=== PATIENT | male | born 1955 | race Caucasian/White ===

== ENCOUNTER 2022-11-21 07:51 | Outpatient (CLI) | payer MEDICARE, SELFPAY ==
[2022-11-21 10:21] LABS: Chloride* 107 mmol/L (96-114); Potassium* 4.6 mmol/L (3.6-5.1); Sodium* 141 mmol/L (135-149)
[2022-11-21 10:24] LABS: Alanine Aminotransferase* 26 U/L (4-50); Alkaline Phosphatase* 82 U/L (40-150); Aspartate Amino Transferase* 25 U/L (12-35); Bilirubin Total* 0.5 mg/dL (0.1-1.5); Blood Urea Nitrogen* 19 mg/dL (7-30); Carbon Dioxide* 28 mmol/L (20-32); Creatinine* 1.2 mg/dL (0.5-1.5); Estimated Glomerular Filt Rate 66 ml/min; Glucose* 108 mg/dL (60-115); Total Protein* 6.4 g/dL (6.0-8.3)
[2022-11-21 10:25] LABS: Calcium* 8.6 mg/dL (8.4-10.6)
[2022-11-21 10:30] LABS: Creatinine Urine 172.9 mg/dL
[2022-11-21 10:34] LABS: Microalbumin Creatinine Ratio 10 mg/g (0-30); Microalbumin Urine 2 mg/dL
== END 2022-11-21 07:52 | disposition home or self-care (01) ==
PROVIDERS: PCP Family Medicine; Visit Provider Family Medicine
DX: N18.9 Chronic kidney disease, unspecified (principal); R73.03 Prediabetes
CPT/HCPCS: 80053; 82043; 82570

== ENCOUNTER 2023-03-22 07:40 | Outpatient (CLI) | payer MEDICARE, SELFPAY | END 2023-03-22 07:41 | disposition home or self-care (01) | LOC: NFLDREF 03-23 10:41 | PROVIDERS: PCP Family Medicine; Referring Provider Family Medicine; Visit Provider Family Medicine | DX: E78.5 Hyperlipidemia, unspecified (principal); R73.03 Prediabetes; Z12.5 Encounter for screening for malignant neoplasm of prostate; I10 Essential (primary) hypertension; M10.9 Gout, unspecified | CPT/HCPCS: 80053; 80061; 84153; 84550 ==

== ENCOUNTER 2024-03-26 08:00 | Outpatient (CLI) | payer MEDICARE, SELFPAY | END 2024-03-26 08:01 | disposition home or self-care (01) | LOC: NFLDREF 03-27 11:59 | PROVIDERS: PCP Family Medicine; Referring Provider Family Medicine; Visit Provider Family Medicine | DX: E78.5 Hyperlipidemia, unspecified (principal); I10 Essential (primary) hypertension; R73.03 Prediabetes; N40.0 Benign prostatic hyperplasia without lower urinary tract symptoms; Z12.5 Encounter for screening for malignant neoplasm of prostate | CPT/HCPCS: 80053; 80061; 82043; 82570; 84550; G0103 ==

== ENCOUNTER 2024-07-08 07:32 | Outpatient (CLI) | payer MEDICARE, SELFPAY ==
--- NOTE | 2024-07-08 08:00 | CRLHL7_ITS ---
For Patients: As a result of the 21st Century Cures Act, medical imaging exams and procedure reports are released immediately into your electronic medical record. You may view this report before your referring provider. If you have questions, please contact your health care provider. Indication: CHRONIC COUGH X 15 YEARS. EXPOSURE TO ASBESTOS Technique: Noncontrast CT chest, including supine inspiration and expiration high-resolution images. Please note that all CT scans at this facility use dose modulation, iterative reconstruction, and/or weight-based dosing when appropriate to reduce radiation dose to as low as reasonably achievable. Comparison: CT chest 01/03/2013, CT abdomen 02/02/2016 Findings: In the upper abdomen, there is a solid lesion arising from the left hepatic lobe which is partially exophytic and measures 5.7 cm, previously, there was a solid lesion measuring 2.6 cm. The adrenal glands are normal. The spleen is nonenlarged. No hiatal hernia. No pleural or pericardial effusion. No adenopathy. A left thyroid lobe nodule is present measuring 3.4 cm. Atherosclerotic changes. Degenerative changes are present at both shoulders. Unchanged 3 millimeter nodule along the right minor fissure. Minimal linear subsegmental scarring is present in the inferior lingula. No honeycombing or interlobular septal thickening. No airspace disease. Discogenic spurring throughout the mid thoracic spine. Patchy areas of air trapping are present bilaterally. Impression: Patchy areas of air trapping noted bilaterally consistent with small airway disease. No pulmonary fibrosis or suspicious pulmonary nodule. No evidence of asbestos related pleural disease or asbestosis. Enlargement of solid lesion arising from the left hepatic lobe measuring 5.7 cm. Ultrasound was performed 02/07/2016 which revealed an indeterminate lesion and MRI was recommended. It is unclear if this was ever performed. Dedicated liver CT or liver MRI recommended for further evaluation. 3.4 cm left thyroid lobe nodule. Ultrasound thyroid recommended. Please note that all CT scans at this facility use dose modulation, iterative reconstruction, and/or weight-based dosing when appropriate to reduce radiation dose to as low as reasonably achievable. Dictated by Emmanuel Cain MD @ 07/08/2024 10:22:44 AM (Electronically Signed)
[2024-07-08 08:09] LABS: Creatinine* 1.4 mg/dL (0.5-1.5); Estimated Glomerular Filt Rate 55 ml/min
--- NOTE | 2024-07-08 08:30 | CRLHL7_ITS ---
For Patients: As a result of the Century Cures Act, medical imaging exams and procedure reports are released immediately into your electronic medical record. You may view this report before your referring provider. If you have questions, please contact your health care provider. INDICATION: NECK FULLNESS NECK LUMPS TECHNIQUE: CT of the neck with 138 ml iodinated contrast agent. Coronal and sagittal reconstructions are included. COMPARISON: None FINDINGS: No lymphadenopathy. The oral cavity, nasopharyngeal, oropharyngeal and hypopharyngeal mucosal spaces are normal. No periapical dental disease. The supraglottic, glottic and infraglottic larynx are normal. The airway including the trachea is normal and is patent. The parotid glands, submandibular and sublingual glands are normal in appearance. 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 Heterogeneous enhancing masses noted in the thyroid lobes, largest in the left side measuring up to 3.8 cm on the right measuring up to 1.5 cm. Retropharyngeal course of the right internal carotid artery. Scattered cervical spondylosis. No suspicious lytic or blastic osseous lesions. Visualized paranasal sinuses and mastoid air cells are clear. Rightward deviation of the nasal septum. Visualized orbital and intracranial contents are normal. Supraclavicular regions, mediastinum and soft tissues of the imaged chest wall are normal. Visualized portions of the upper lungs are clear. IMPRESSION: 1. Heterogeneous enhancing masses noted in the thyroid lobes, largest in the left side measuring up to 3.8 cm on the right measuring up to 1.5 cm. Findings may represent multinodular goiter but further evaluation with ultrasound is recommended for further characterization. 2. No evidence of acute inflammation. 3. No cervical lymphadenopathy. 4. 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 Please note that all CT scans at this facility use dose modulation, iterative reconstruction, and/or weight-based dosing when appropriate to reduce radiation dose to as low as reasonably achievable. Dictated by Emmanuel Almeida MD @ 07/08/2024 1:14:18 PM (Electronically Signed)
== END 2024-07-08 07:33 | disposition home or self-care (01) ==
LOC: CT 07:33
PROVIDERS: PCP Family Medicine; Visit Provider Family Medicine
DX: R22.1 Localized swelling, mass and lump, neck (principal); R05.3 Chronic cough; E04.1 Nontoxic single thyroid nodule; Z77.090 Contact with and (suspected) exposure to asbestos
CPT/HCPCS: 36415; 70491; 71250; 82565; Q9967

== ENCOUNTER 2024-07-21 06:55 | Outpatient (CLI) | payer MEDICARE, SELFPAY ==
--- NOTE | 2024-07-21 07:15 | CRLHL7_ITS ---
For Patients: As a result of the Century Cures Act, medical imaging exams and procedure reports are released immediately into your electronic medical record. You may view this report before your referring provider. If you have questions, please contact your health care provider. INDICATION: Hepatomegaly COMPARISON: CT chest 07/08/2024, CT abdomen 02/02/2016 TECHNIQUE: Real time coburn scale imaging and color Doppler analysis was performed of the right upper quadrant. FINDINGS: The liver measures 15.9 cm. Liver echotexture is diffusely increased. There is a heterogeneous solid mass there is a normal appearance of the hepatic IVC and proximal abdominal aorta. There is no evidence of ascites. Echogenic and shadowing stones are present within the gallbladder lumen. The gallbladder wall measures 3.6 mm in thickness. The common bile duct is of normal size and measures 4.3 mm in diameter at the level of the alden hepatis. The pancreas appears normal. There is no evidence of a stone or hydronephrosis within the right kidney. Simple cyst in the right kidney measures 17 x 14 x 16 millimeters. The right kidney measures 10.7 cm in length. IMPRESSION: Solid heterogeneous mass within the left hepatic lobe measuring 4.9 x 5.5 x 4.7 cm, indeterminate, possible atypical hemangioma but can not exclude alternative lesion. MRI liver with and without contrast recommended for further evaluation. Cholelithiasis. Incidental right renal cyst. Dictated by Emmanuel Cain MD @ 07/21/2024 8:06:34 AM (Electronically Signed)
--- NOTE | 2024-07-21 08:15 | CRLHL7_ITS ---
For Patients: As a result of the Century Cures Act, medical imaging exams and procedure reports are released immediately into your electronic medical record. You may view this report before your referring provider. If you have questions, please contact your health care provider. INDICATION: Thyroid nodule. TECHNIQUE: Ultrasound thyroid with coburn-scale and color Doppler analysis. COMPARISON: None available. FINDINGS: Right lobe: 5.5 x 2.3 x 2.8 cm. Left lobe: 5.6 x 3.2 x 3.4 cm. Nodules: Nodule 1: Mid right thyroid lobe. 1.8 x 1.3 x 1.8 centimeters. Almost completely solid. Mildly hypoechoic. Wider than tall. Smooth margins. No echogenic foci. TI-RADS 4. Nodule 2: Mid right thyroid lobe, posterior. 1.6 x 1.0 x 1.4 centimeters. Almost completely solid. Mildly hypoechoic. Wider than tall. Smooth margins. No echogenic foci. TI-RADS 4. Nodule 3: Mid left thyroid lobe. 3.9 x 2.8 x 3.1 centimeters. Almost completely solid. Isoechoic. Wider than tall. Smooth margins. No echogenic foci. TI-RADS 3. Echotexture of the thyroid parenchyma is mildly heterogeneous. Color Doppler analysis demonstrates normal vascularity. The isthmus is normal. No evidence of lymphadenopathy or parathyroid mass. IMPRESSION: Multinodular thyroid. Three nodules described above all attain the TI-RADS definite threshold. - ACR TI-RADS [email or web address] TR1: Benign No FNA TR2: Not Suspicious No FNA TR3: Mildly Suspicious FNA if greater than or equal to 2.5 cm Follow if greater than or equal to 1.5 cm TR4: Moderately Suspicious FNA if greater than or equal to 1.5 cm Follow if greater than or equal to 1 cm TR5: Highly Suspicious FNA if greater than or equal to 1 cm Follow if greater than or equal to 0.5 cm Dictated by Luther Brown MD @ 07/21/2024 8:13:01 AM (Electronically Signed)
== END 2024-07-21 06:56 | disposition home or self-care (01) ==
LOC: US 06:56
PROVIDERS: PCP Family Medicine; Visit Provider Family Medicine
DX: E04.1 Nontoxic single thyroid nodule (principal); N28.1 Cyst of kidney, acquired; R16.0 Hepatomegaly, not elsewhere classified; I78.1 Nevus, non-neoplastic
CPT/HCPCS: 76536; 76705

== ENCOUNTER 2024-08-05 08:37 | Outpatient (CLI) | payer MEDICARE, SELFPAY ==
--- NOTE | 2024-08-05 09:15 | CRLHL7_ITS ---
For Patients: As a result of the 21st Century Cures Act, medical imaging exams and procedure reports are released immediately into your electronic medical record. You may view this report before your referring provider. If you have questions, please contact your health care provider. INDICATION: Liver disease, follow-up liver lesion TECHNIQUE: 1.5 T MRI of the abdomen was performed with pre and postcontrast T1 weighted imaging; T2 weighted imaging; diffusion weighted imaging; in and out of phase imaging. 20 mL Dotarem IV. COMPARISON: Chest CT 07/08/2024, abdominal ultrasound 02/07/2016, CT abdomen and pelvis 02/02/2016 FINDINGS: Lungs: The lung bases are clear. No pleural or pericardial effusion. Liver: Homogeneous liver parenchyma. There is signal dropout of the hepatic parenchyma on out of phase imaging. No hepatic masses. Increased size of two hepatic cystic lesions demonstrate non continuous peripheral early arterial enhancement which progress centrally on delayed imaging. These lesions measure up to 5 cm in the left hepatic lobe (15/28), previously 2.[address] from 2016, and 4.5 cm in the right hepatic lobe (15/31), previously 2.[address]. Additional scattered subcentimeter T2 hyperintense cystic lesions are too small to accurately characterize but likely reflect benign cysts or hemangiomas. Biliary tree and gallbladder: No intra or extrahepatic biliary dilation. Cholelithiasis. Spleen: Unremarkable Pancreas: Mildly atrophic pancreatic parenchyma. No pancreatic masses. No pancreatic duct dilation. Adrenal glands: Unremarkable. Kidneys and ureters: Heterogeneously T2 hyperintense, T1 hyperintense, cystic lesion within the superior right renal pole measuring 1.6 x 1.7 cm (5/24), previously 1.[address] from 2016. Within this lesion, there are suspected enhancing septations versus punctate focal nodular enhancement (18/), although evaluation is limited secondary to motion artifact and lack of postcontrast subtraction sequences. Scattered subcentimeter bilateral T2 hyperintense cystic lesions too small to accurately characterize but likely benign cysts. No hydronephrosis. GI tract: No evidence of obstruction or inflammation. Vasculature: The IVC and aorta are patent. No abdominal aortic aneurysm. Lymph nodes: No lymphadenopathy. Abdominal wall: Unremarkable Bones: Degenerative change of the imaged spine. IMPRESSION: 1. Increased size of two hepatic cystic lesions, compared to CT from 2016, compatible with hemangiomas. 2. Increased size of a right upper renal pole cystic lesion with suspected enhancing septations versus punctate focal nodular enhancement, although evaluation is limited secondary to motion artifact and lack of postcontrast subtraction sequences. This could represent either a Bosniak 3 or 4 lesion. Consider consultation with Urology and/or short interval follow-up imaging with dedicated renal protocol MRI. 3. Hepatic steatosis. Dictated by Cindy Horta MD @ 08/05/2024 12:15:41 PM (Electronically Signed)
== END 2024-08-05 08:38 | disposition home or self-care (01) ==
LOC: MRI 08:37
PROVIDERS: PCP Family Medicine; Visit Provider Family Medicine
DX: K76.9 Liver disease, unspecified (principal); N28.1 Cyst of kidney, acquired; K76.0 Fatty (change of) liver, not elsewhere classified
CPT/HCPCS: 74183; A9575

== ENCOUNTER 2024-10-10 12:47 | Outpatient (CLI) | payer MEDICARE, SELFPAY | END 2024-10-10 12:48 | disposition home or self-care (01) | PROVIDERS: PCP Family Medicine; Visit Provider Family Medicine | DX: I10 Essential (primary) hypertension (principal) | CPT/HCPCS: 80053 ==

== ENCOUNTER 2025-03-24 07:50 | Outpatient (CLI) | payer MEDICARE, SELFPAY | END 2025-03-24 07:51 | disposition home or self-care (01) | LOC: NFLDREF 03-25 00:51 | PROVIDERS: PCP Family Medicine; Referring Provider Family Medicine; Visit Provider Family Medicine | DX: E78.5 Hyperlipidemia, unspecified (principal); I10 Essential (primary) hypertension; M10.9 Gout, unspecified; R73.03 Prediabetes; Z12.5 Encounter for screening for malignant neoplasm of prostate | CPT/HCPCS: 80053; 80061; 84550; G0103 ==